=== PATIENT | female | born 1985 | race African-American/Black ===

== ENCOUNTER 2019-11-23 05:03 | Emergency (ER) | payer OTHER ==
[~2019-11-23] VITALS: Ht 167.6 cm; Wt 127.0 kg
[2019-11-23 05:09] VITALS: BP 113/75
--- NOTE | 2019-11-23 05:14 | NUR ---
PT TAKEN TO BED 3
--- NOTE | 2019-11-23 05:16 | NUR ---
33 Y/O FEMALE PLACED IN BED 3 C/O SMALL FOREHEAD LAC SECONDARY TO A SYNCOPAL EPISODE WHILE ON THE TOILET
--- NOTE | 2019-11-23 05:16 | NUR ---
Dr. Christy examining patient.
[2019-11-23] MEDS ORDERED: KETOROLAC 60 MG/2 ML VIAL IM ONE (05:30)
[2019-11-23 06:10] VITALS: BP 113/75
--- NOTE | 2019-11-23 06:12 | NUR ---
DX - SYNCOPAL EPISODE. ACI WITH RX GIVEN TO THE PT. PT TO FOLLOW UP WITH PMD
== END 2019-11-23 06:12 | disposition home or self-care (01) ==
LOC: MED 05:03
DX: S01.81XA Laceration without foreign body of other part of head, initial encounter (principal); R55 Syncope and collapse; W19.XXXA Unspecified fall, initial encounter; Y93.89 Activity, other specified; Y92.89 Other specified places as the place of occurrence of the external cause; Y99.8 Other external cause status
CPT/HCPCS: 12011; 90471; 90715; 93005; 96372; 99283; J1885